=== PATIENT | male | born 1995 | race Hispanic/Latino ===

== ENCOUNTER 2020-11-03 17:45 | Emergency (ER) | payer OTHER ==
[~2020-11-03] VITALS: Ht 167.6 cm; Wt 85.5 kg
[2020-11-03 19:50] VITALS: BP 146/79
[2020-11-03] MEDS ORDERED: IBUPROFEN 800 MG TAB PO ONE (20:00)
== END 2020-11-03 20:07 | disposition home or self-care (01) ==
LOC: M ED 17:45 → CANBEDREQ 19:28 → M ED 20:07
DX: B34.9 Viral infection, unspecified (principal); R07.0 Pain in throat; R10.84 Generalized abdominal pain; R50.9 Fever, unspecified; Z20.822 Contact with and (suspected) exposure to COVID-19
CPT/HCPCS: 87880; 99284; U0003